=== PATIENT | female | born 1930 | race Caucasian/White ===

== ENCOUNTER 2018-03-04 01:55 | Inpatient (IN) ==
[2018-03-04] MEDS ORDERED: ONDANSETRON HCL/PF 2 MG/ML VIAL IV ONE ×3 (02:20→14:31)
--- NOTE | 2018-03-04 02:23 | ERNOTE ---
Abdominal HPI - General Chief Complaint: Abdominal Pain Time Seen by Provider: 03/04/18 02:16 Source: patient Exam Limitations: no limitations - Immun/Allergies/Home Medications Immunizatons: IMMUNIZATION HX Immunizations Up to Date Yes History of Influenza Vaccine Yes Hx Pneumococcal Vaccination Yes Allergies/Adverse Reactions: Allergies No Known Allergies Allergy (Verified 03/04/18 02:10) Home Medications: HOME MEDICATIONS Aspirin [Aspirin Chewable] 81 mg PO DAILY 05/17/14 [Last Taken 01/17/18 81mg] Benazepril HCl [Lotensin] 20 mg PO DAILY 05/17/14 [Last Taken 01/17/18 20] amLODIPine BESYLATE [Norvasc] 5 mg PO DAILY 05/17/14 [Last Taken 01/17/18 5mg] Levothyroxine Sodium [Synthroid] 125 mcg PO DAILY@0700 12/09/15 [Last Taken 12/30] loperamide 2 mg capsule 2 mg PO DAILY cap 01/30/18 [Last Taken Unknown] ferrous sulfate 325 mg (65 mg iron) tablet 325 mg PO BID #180 tab 03/03/18 [ Last Taken Unknown] - History of Present Illness Narrative: Pt states she was in her usual state of health when she went to bed last night around 22:00. She then woke up approx 1 hour SLURRY MAN with abdominal pain and n/v. She called her daughter who brought her to the ED. She was admitted to this facility last month with SBO. Timing: getting worse Quality: moderate Review of Systems - Review of Systems Constitutional: Absent: recent illness, fever EYE: Absent: vision changes Respiratory: Absent: shortness of breath Cardiology: Absent: chest pain Gastrointestinal/Abdominal: Present: See HPI, nausea, vomiting, diarrhea - which she uses imodium for.. Absent: constipation Genitourinary: Absent: frequency, pain, dysuria Musculoskeletal: Absent: back pain Medical History (Last Reviewed 03/04/18 @ 02:10 by Mario Villasenor RN) Osteoarthritis (Chronic) Onset Date: ~12/10/12 Diverticulosis of colon (Chronic) DVT (deep venous thrombosis) (Chronic) Onset Date: ~12/2005 Hypertension (Chronic) Anemia (Chronic) Diarrhea (Resolved) Cough (Resolved) Hypothyroidism (Chronic) Peritonitis (acute) generalized (Resolved) Radiation proctitis Onset Date: ~07/18/16 Wears dentures Wears glasses Dehydration Rectal cancer Onset Date: ~09/25/05 Rotator cuff tear arthropathy of right shoulder Surgical History: Surgical History (Last Reviewed 03/04/18 @ 02:10 by Mario Villasenor RN) H/O thyroidectomy (Resolved) Onset Date: ~1960 H/O: hysterectomy (Resolved) Basal cell carcinoma Onset Date: ~01/31/18 H/O arthroscopic knee surgery H/O flexible sigmoidoscopy Onset Date: ~07/2008 History of bilateral salpingo-oophorectomy History of bowel resection History of esophagogastroduodenoscopy (EGD) History of rectal surgery History of tonsillectomy and adenoidectomy Hx of colonoscopy S/P bilateral cataract extraction SBO (small bowel obstruction) Family History: Family History (Last Reviewed 03/04/18 @ 02:10 by Mario Villasenor RN) Brother Myocardial infarction Father Cerebral hemorrhage Mother Alzheimers disease Sister Myocardial infarction Sister Hypertension Son Colon polyps Social History: Preferred Language Mongolian Smoking Status Never smoker Have you smoked in the past 12 No months Do you dip or chew tobacco No Abuse History No History of abuse Psych History No pertinent hx Alcohol Use none Drug Use none Physical Exam - Physical Exam General Appearance: Present: wd/wn, alert, no apparent distress Head Exam: Present: normal inspection, no evidence of injury Neck: Present: normal inspection, nontender, supple Respiratory: Present: no respiratory distress, normal breath sounds, no accessory muscle use, lungs clear Cardiovascular/Chest: Present: regular rate, rhythm, no murmur Gastrointestinal/Abdominal: Present: tenderness - diffuse, abnormal bowel sounds - hypoactive, distended - mildly and mildly firm. Absent: guarding, rebound Back Exam: Present: normal inspection, normal range of motion, no CVA tenderness Extremity Exam: Present: normal inspection, normal range of motion, no edema Neurological Exam: Present: alert, oriented, normal mood/affect Skin Exam: Present: normal color, warm/dry Lymphatic Exam: Present: no adenopathy ED Progress - Results and Orders Patient's Lab Results:: I have reviewed the patient's lab results. Results and Orders: Laboratory Tests 03/04/18 03/04/18 03/04/18 02:45 02:45 02:45 WBC 11.8 H Hgb 13.9 Hct 43.2 Neutrophils % 81.7 H Sodium 138 Potassium 4.3 Chloride 101 BUN 22 D Creatinine 0.85 Random Glucose 169 H Calcium 9.8 AST 31 ALT 19 Amylase 50 Lipase 212 Urine Color Yellow Urine Appearance Clear Urine pH 6.0 Ur Specific [place] >=1.030 Urine Protein Negative Urine Glucose (UA) Negative Urine Ketones Negative Urine Blood 10 H Urine Nitrate Negative Urine Bilirubin Negative Urine Urobilinogen Normal Ur Leukocyte Esterase Negative Urine RBC Trace Urine WBC 0-5 Ur Epithelial Cells 0-5 Urine Bacteria 1+ H Urine Mucus Moderate - 2+ H Urine Culture Comments No culture indicated - Vital Signs Patient's Vital Signs:: I have reviewed the patient's vital signs. Vital Signs: Vital Signs 03/04/18 02:01 Temperature 37.5 C Pulse Rate 94 Respiratory Rate 16 Blood Pressure 163/94 H O2 Sat by Pulse Oximetry 98 - X-Ray X-Ray #1 X-Ray: abdomen Interpretation: Interp. by me X-ray Comments: mod stool, non-specific bowel / gas pattern. No evidence of obstruction. - CT/Ultrasound CT/Ultrasound Narrative: CT abd / pelvis with contrast: SBO distal small bowel without evidence for perforation. - Progress/Reassessment Chief Complaint: Abdominal Pain Progress:: Improved Progress Note-Subjective: 03/04/18 08:[address] Gudino and she agrees with admit. She requests that I consult gen surgery. I spoke with Dr. Valenzuela and he agrees to consult on the patient. He has seen the patient previously. Departure Clinical Impression: SBO (small bowel obstruction) - Departure Disposition: Still a patient Condition: Stable
[2018-03-04 02:52] LABS: Hematocrit 43.2 % (37.0-47.0); Hemoglobin 13.9 gm/dL (12.5-16.0); Mean Cell Volume 97.5 fl (78-100); Mean Corpuscular Hemoglobin 31.4 pg (27-31); Mean Corpuscular Hgb Conc 32.2 g/dl (32-36); Neutrophil # 9.6 K/mm3 (1.3-6.0); Neutrophil % 81.7 % (42-75.0); Platelet Count 273 K/mm3 (150-450); Red Blood Count 4.43 M/mm3 (4.2-5.4); Red Cell Distribution Width 13.3 % (11.5-14.0); White Blood Count 11.8 K/mm3 (4.0-10.5)
[2018-03-04 02:53] LABS: Urine Bilirubin Negative (NEGATIVE); Urine Ketone Negative (NEGATIVE); Urine Nitrite Negative (NEGATIVE); Urine Protein Negative (NEGATIVE); Urine Specific Gravity >=1.030 SP.GR. (1.005-1.010); Urine Urobilinogen Normal (NORMAL)
[2018-03-04] MEDS ORDERED: ONDANSETRON HCL/PF 2 MG/ML VIAL ONE ×2 (02:56→05:30)
[2018-03-04 03:09] LABS: Albumin * 4.4 gm/dl (3.4-5.0); Anion Gap 16.3 mmol/L (6.8-13.8); BUN/Creatinine Ratio 25.9 (9.0-21.6); Bilirubin, Total 0.4 mg/dL (0.0-1.1); Ca. Corrected For Albumin 9.2 mg/dL (8.4-10.2); Calcium * 9.8 mg/dL (7.9-10.9); Potassium 4.3 mmol/L (3.4-4.6); Total Protein 7.7 gm/dL (6.2-8.2)
[2018-03-04 03:11] LABS: Urine Appearance Clear (CLEAR); Urine Blood 10 /ul (NEGATIVE); Urine Color Yellow
[2018-03-04 03:12] LABS: Urine Bacteria 1+; Urine Mucus Moderate - 2+; Urine RBC TRACE /hpf (0-5); Urine WBC 0-5 /hpf (0-5)
[2018-03-04] MEDS ORDERED: MORPHINE SULFATE 2 MG/ML DISP.SYRIN IV ONE ×4 (03:39→19:21)
[2018-03-04] MEDS ORDERED: DIATRIZOATE MEGLUMINE, SODIUM 30 ML BTL PO ONE (03:40)
[2018-03-04] MEDS ORDERED: MORPHINE SULFATE 2 MG/ML DISP.SYRIN ONE ×3 (03:42→07:45)
[2018-03-04] MEDS ORDERED: DIATRIZOATE MEGLUMINE, SODIUM 30 ML BTL ONE (03:42)
[2018-03-04] MEDS ORDERED: ONDANSETRON HCL/PF 2 MG/ML VIAL IV PRN ×2 (15:22→19:43)
[2018-03-04] MEDS ORDERED: ACETAMINOPHEN 325 MG TABLET PO PRN (15:22)
[2018-03-04] MEDS ORDERED: traMADol HCL 50 MG TABLET PO PRN (16:22)
[2018-03-04] MEDS ORDERED: MORPHINE SULFATE 2 MG/ML DISP.SYRIN IV PRN ×2 (16:25→19:21)
--- NOTE | 2018-03-04 17:59 | CONS ---
[facility] - General Date of Service: 03/04/18 Source: patient, family, RN/MD, RN notes reviewed, old records Exam Limitations: no limitations - History of Present Illness Initial Comments: The patient is an 87-year-old female (known to me) who presented to the emergency room last night with a short history of abdominal pain vomiting. She apparently had some diarrhea yesterday, and then last night developed infraumbilical pain and presented to the emergency room. Her initial x-ray showed a nonspecific bowel gas pattern with air and stool in the colon. Subsequent CT scan of the abdomen and pelvis showed fluid-filled proximal small bowel with a nonspecific transition to smaller caliber intestine. This was felt to represent partial small bowel obstruction and the patient was admitted. Her history is remarkable for a rectal carcinoma found on her first screening colonoscopy in 2005. She was treated with external beam radiation therapy at the [facility]. 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 On subsequent endoscopy she was found to have a complete clinical response and had transanal resection of the original tumor area with a pathologic finding of no residual disease. She underwent subsequent chemotherapy through the [facility]. On yearly follow-up colonoscopy in 2006 she was found to have an area suspicious for recurrent tumor which was biopsied. 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. That pathology report is not available. She had a subsequent colonoscopy in 2008 here which revealed complete healing with no mention of radiation proctitis. An additional surveillance colon exam in 2013 was again normal with the exception of diverticulosis. She was admitted here in May 2016 with obstructive symptoms which were managed nonoperatively. She was admitted here again in January for obstructive symptoms and was managed with a nasogastric tube. She responded promptly. She reports chronic problems with constipation and diarrhea. She has to watch her diet. She does take occasional Imodium when her stools are loose. Since being admitted to the hospital she states she feels much better and has passed some gas. Allergies/Adverse Reactions: Allergies No Known Allergies Allergy (Verified 03/04/18 09:12) Home Medications: Home Medications Medication Instructions Recorded Last Taken Aspirin [Aspirin Chewable] 81 mg PO DAILY 05/17/14 01/17/18 81mg Benazepril HCl [Lotensin] 20 mg PO DAILY 05/17/14 01/17/18 20 amLODIPine BESYLATE [Norvasc] 5 mg PO DAILY 05/17/14 01/17/18 5mg Levothyroxine Sodium [Synthroid] 150 mcg PO DAILY@0700 12/09/15 01/17/18 loperamide 2 mg capsule 2 mg PO PRN PRN cap 01/30/18 Unknown ferrous sulfate 325 mg (65 mg 325 mg PO BID #180 tab 03/03/18 Unknown iron) tablet Procedures CATARAC PHACOEMULS/ASPIR (08/03/09) Closed [endoscopic] biopsy of rectum (01/21/07) Colonoscopy (05/28/14) INSERT LENS AT CATAR EXT (08/03/09) Medications - Medications Current Medications: Current Medications Acetaminophen (Tylenol) 650 mg PO Q4H PRN PRN Reason: Mild pain (pain scale 1-3) Stop: 04/03/18 15:23 Last Admin: 03/04/18 15:32 Dose: 650 mg Morphine Sulfate (Morphine Sulfate) 1 mg IV Q2H PRN PRN Reason: Severe Pain (pain scale 7-10) Stop: 04/03/18 16:26 Last Admin: 03/04/18 16:54 Dose: 1 mg Review of Systems - Review of Systems Generalized/Overall Review: Absent: Chills, Fever EENTM: Present: No Symptoms Reported Respiratory: Present: No Symptoms Reported Cardiac: Present: No Symptoms Reported Abdominal: Present: Other - Currently her abdomen does not hurt but is a little "tender" Genitourinary: Present: No Symptoms Reported Musculoskeletal: Present: No Symptoms Reported Skin: Present: No Symptoms Reported Physical Examination - Exam Vital Signs: Vital Signs - Last Taken Temp 37.2 C 03/04/18 14:24 Pulse 77 03/04/18 14:24 Resp 18 03/04/18 14:24 BP 169/69 H 03/04/18 14:24 Pulse Ox 97 03/04/18 14:24 O2 Oxygen Delivery Method Room Air Constitutional: Present: Alert, Oriented x3, Cooperative, Thin and frail ENT Exam: Present: normal ENT inspection Neck: Present: normal inspection Respiratory: Present: no respiratory distress Cardiovascular/Chest: Present: regular rate, rhythm Abdomen: Present: other - Her abdomen is soft, however very tympanitic. Bowel sounds are present. She reports tenderness over the lower abdomen but does not guard and there is no rebound /Rectal: Present: Exam deferred Extremity: Present: normal range of motion Skin Exam: Present: pallor Neurologic: Present: solution strategist II-XII nml as tested, no motor/sensory deficits Appearance: Present: appropriate insight Eye contact: Present: cooperative, good eye contact, normal speech Thoughts: Present: normal thought pattern - Results and Findings: Lab/Microbiology results last 24 hrs: Abnormal/Pending Laboratory Last 24 HRS 03/04/18 03/04/18 03/04/18 02:45 02:45 02:45 WBC 11.8 H MCH 31.4 H Immature Gran % (Auto) 0.80 H Immature Gran # (Auto) 0.10 H Neutrophils % 81.7 H Lymphocytes % 7.4 L Neutrophils # 9.6 H Lymphocytes # 0.88 L Monocytes # 1.1 H Anion Gap 16.3 H BUN/Creatinine Ratio 25.9 H Random Glucose 169 H Urine Blood 10 H Urine Bacteria 1+ H Urine Mucus Moderate - 2+ H - Assessments/Findings (1) SBO (small bowel obstruction) Diagnosis(s): Whether this truly represents a partial small bowel obstruction, radiation enteritis, or is a chronic problem with colonic dysfunction is unclear. The x- rays and CT scan do not suggest a high grade obstruction. She does not have physical findings suggestive of an acute intra-abdominal process which would warrant operative intervention. Her diet could be advanced as tolerated. Would consider institution of a regular program for her bowels with the use of Benefiber or Metamucil. She should avoid Imodium. Will discuss the case with Dr. Gudino Problem: Acute
[2018-03-04] MEDS: FERROUS SULFATE 325 MG TABLET PO SCH (20:51)
[2018-03-04] MEDS ORDERED: MINERAL OIL 1 ENEMA BTL RC ONE (22:54)
[2018-03-05] MEDS: ASPIRIN 81 MG TAB.CHEW PO SCH (08:00)
[2018-03-05] MEDS: FERROUS SULFATE 325 MG TABLET PO SCH ×2 (08:00→21:29)
[2018-03-05] MEDS: amLODIPine BESYLATE 5 MG TABLET PO SCH (08:00)
[2018-03-05] MEDS: LEVOTHYROXINE SODIUM 150 MCG TABLET PO SCH (08:00)
[2018-03-05] MEDS: ENALAPRIL MALEATE 20 MG TABLET PO SCH (08:01)
[2018-03-05] MEDS: SENNOSIDES/DOCUSATE SODIUM 1 TAB TABLET PO SCH ×2 (12:03→16:05)
[2018-03-05] MEDS: POLYETHYLENE GLYCOL 3350 119 GM BTL PO SCH (12:03)
[2018-03-05] MEDS ORDERED: ENOXAPARIN SODIUM 40 MG/0.4 ML SYRG SC SCH (13:15)
[2018-03-05] MEDS ORDERED: SENNOSIDES/DOCUSATE SODIUM 1 TAB TABLET PO SCH (21:00)
[2018-03-06] MEDS: LEVOTHYROXINE SODIUM 150 MCG TABLET PO SCH (07:34)
[2018-03-06] MEDS: ENALAPRIL MALEATE 20 MG TABLET PO SCH (08:15)
[2018-03-06] MEDS: FERROUS SULFATE 325 MG TABLET PO SCH (08:15)
[2018-03-06] MEDS: ASPIRIN 81 MG TAB.CHEW PO SCH (08:15)
[2018-03-06] MEDS: amLODIPine BESYLATE 5 MG TABLET PO SCH (08:16)
[2018-03-06] MEDS: SENNOSIDES/DOCUSATE SODIUM 1 TAB TABLET PO SCH (08:16)
[2018-03-06] MEDS: POLYETHYLENE GLYCOL 3350 119 GM BTL PO SCH (08:16)
--- NOTE | 2018-03-06 10:04 | HP ---
Chief Complaint - Chief Complaint Date of Service: 03/04/18 Time of Service: 07:30 Chief Complaint: Nausea and vomiting, history of bowel obstruction History of Present Illness: The patient presented to the ED with complaints of sudden onset of nausea and vomiting. She states she felt fine yesterday but around 0100 this AM, she was awoken from sleep secondary to nausea and vomiting. She denies any blood in the her vomit. She states she is feeling better since being admitted but stills has intermittent nausea. She denies any significant abdominal pain other than some cramping. She states she has been constipated and has not had a BM in a few days. Medical History (Last Reviewed 03/12/18 @ 15:24 by Yue Hinds RN) Osteoarthritis (Chronic) Onset Date: ~12/10/12 Diverticulosis of colon (Chronic) DVT (deep venous thrombosis) (Chronic) Onset Date: ~12/2005 Hypertension (Chronic) Anemia (Chronic) Diarrhea (Resolved) Cough (Resolved) Hypothyroidism (Chronic) Peritonitis (acute) generalized (Resolved) Radiation proctitis Onset Date: ~07/18/16 Wears dentures Wears glasses Dehydration Rectal cancer Onset Date: ~09/25/05 Rotator cuff tear arthropathy of right shoulder Surgical History: Surgical History (Last Reviewed 03/12/18 @ 15:24 by Yue Hinds RN) H/O thyroidectomy (Resolved) Onset Date: ~1960 H/O: hysterectomy (Resolved) Basal cell carcinoma Onset Date: ~01/31/18 H/O arthroscopic knee surgery H/O flexible sigmoidoscopy Onset Date: ~07/2008 History of bilateral salpingo-oophorectomy History of esophagogastroduodenoscopy (EGD) History of rectal surgery History of tonsillectomy and adenoidectomy Hx of colonoscopy S/P bilateral cataract extraction SBO (small bowel obstruction) Family History: Family History (Last Reviewed 03/12/18 @ 15:24 by Yue Hinds RN) Brother Myocardial infarction Father Cerebral hemorrhage Mother Alzheimers disease Sister Myocardial infarction Sister Hypertension Son Colon polyps Social History: Patient Lives/Resources Home Utilized Preferred Language Greek Do you have any gnosticism or No cultural preference? Smoking Status Never smoker Have you smoked in the past 12 No months Do you dip or chew tobacco No Abuse History No History of abuse Psych History No pertinent hx Alcohol Use none Drug Use none Review Of Systems (GEN) - Review of Systems Generalized/Overall Review: Present: Weakness, Fatigue Abdominal: Present: Nausea, Vomiting, Constipation. Absent: Hematemesis, Melena , Bright blood from rectum Genitourinary: Absent: Burning, Urgency, Frequency, Hesitancy Misc: All systems neg except as marked Immunizations: IMMUNIZATION HX Immunizations Up to Date Yes History of Influenza Vaccine Yes Hx Pneumococcal Vaccination Yes Allergies/Adverse Reactions: Allergies Allergy/AdvReac Type Severity Reaction Status Date / Time No Known Allergies Allergy Verified 03/12/18 15:23 Home Medications: HOME MEDICATIONS Aspirin [Aspirin Chewable] 81 mg PO DAILY 05/17/14 [Last Taken 01/17/18 81mg] Benazepril HCl [Lotensin] 20 mg PO DAILY 05/17/14 [Last Taken 01/17/18 20] amLODIPine BESYLATE [Norvasc] 5 mg PO DAILY 05/17/14 [Last Taken 01/17/18 5mg] ferrous sulfate 325 mg (65 mg iron) tablet 325 mg PO BID #180 tab 03/03/18 [ Last Taken Unknown] Levothyroxine Sodium [Synthroid] 150 mcg PO DAILY@0700 tab 03/06/18 [Last Taken Unknown] Methylcellulose (with Sugar) [Citrucel Powder] 1 tbs PO DAILY #2 bottle [Last Taken Unknown] Ondansetron [Zofran Odt] 4 mg PO Q8H PRN #20 tab 03/06/18 [Last Taken Unknown] Exam - Exam Vital Signs: Vital Signs - Last Taken Temp 36.8 C 03/06/18 06:44 Pulse 60 03/06/18 08:16 Resp 18 03/06/18 06:44 BP 124/63 03/06/18 08:16 Pulse Ox 96 03/06/18 06:44 Constitutional: Present: Alert, Oriented x3, Cooperative, No distress, Elderly, Thin and frail ENT Exam: Present: moist mucous membranes Back Exam: Present: no CVA tenderness Respiratory: Present: lungs clear, normal breath sounds, no respiratory distress , no accessory muscle use Cardiovascular/Chest: Present: regular rate, rhythm Abdomen: Present: soft, nondistended, no rebound tenderness, tender - Slight discomfort diffusely with deep palpation, other - active bowel sounds in all 4 quadrants. Absent: guarding, rigidity, CVA tenderness, suprapubic tenderness Extremity: Present: normal inspection Skin Exam: Present: warm/dry Neurologic: Present: no motor/sensory deficits, alert, normal mood/affect, oriented x 3 Appearance: Present: appropriate appearance, appropriate insight Eye contact: Present: cooperative, good eye contact Thoughts: Present: normal thought pattern, no apparent hallucination Diagnostic Studies: Laboratory Results WBC 11.8 K/mm3 (4.0-10.5) H 03/04/18 02:45 RBC 4.43 M/mm3 (4.2-5.4) 03/04/18 02:45 Hgb 13.9 gm/dL (12.5-16.0) 03/04/18 02:45 Hct 43.2 % (37.0-47.0) 03/04/18 02:45 MCV 97.5 fl (78-100) 03/04/18 02:45 MCH 31.4 pg (27-31) H 03/04/18 02:45 MCHC 32.2 g/dl (32-36) 03/04/18 02:45 RDW 13.3 % (11.5-14.0) 03/04/18 02:45 Plt Count 273 K/mm3 (150-450) 03/04/18 02:45 MPV 10.0 fl (8-12.5) 03/04/18 02:45 Immature Gran % (Auto) 0.80 % (0.001-0.429) H 03/04/18 02:45 Immature Gran # (Auto) 0.10 K/mm3 (0.000-0.0310) H 03/04/18 02:45 Neutrophils % 81.7 % (42-75.0) H 03/04/18 02:45 Lymphocytes % 7.4 % (20-51) L 03/04/18 02:45 Monocytes % 8.9 % (0.0-9) 03/04/18 02:45 Eosinophils % 0.9 % (0.0-3.0) 03/04/18 02:45 Basophils % 0.3 % (0.0-1.0) 03/04/18 02:45 Nucleated RBC % 0.0 k/mm3 (0-1) 03/04/18 02:45 Neutrophils # 9.6 K/mm3 (1.3-6.0) H 03/04/18 02:45 Lymphocytes # 0.88 k/mm3 (1.5-3.5) L 03/04/18 02:45 Monocytes # 1.1 k/mm3 (0.0-1.0) H 03/04/18 02:45 Eosinophils # 0.1 k/mm3 (0.0-0.7) 03/04/18 02:45 Absolute Basophils 0.0 k/mm3 (0.0-0.1) 03/04/18 02:45 Sodium 138 mmol/L (132-142) 03/04/18 02:45 Plasma Sodium 139 mmol/L (130-142) 03/04/18 02:45 Potassium 4.3 mmol/L (3.4-4.6) 03/04/18 02:45 Chloride 101 mmol/L (97-106) 03/04/18 02:45 Carbon Dioxide 25.0 mmol/L (24-32.6) 03/04/18 02:45 Anion Gap 16.3 mmol/L (6.8-13.8) H 03/04/18 02:45 BUN 22 mg/dL (3-23) D 03/04/18 02:45 Creatinine 0.85 mg/dL (0.4-1.4) 03/04/18 02:45 Est GFR (Non-Af Amer) 67 mL/min (60-130) D 03/04/18 02:45 BUN/Creatinine Ratio 25.9 (9.0-21.6) H 03/04/18 02:45 Random Glucose 169 mg/dL (70-110) H 03/04/18 02:45 Calcium 9.8 mg/dL (7.9-10.9) 03/04/18 02:45 Calcium Adj for Albumin 9.2 mg/dL (8.4-10.2) 03/04/18 02:45 Total Bilirubin 0.4 mg/dL (0.0-1.1) 03/04/18 02:45 AST 31 U/L (0-48) 03/04/18 02:45 ALT 19 U/L (19-67) 03/04/18 02:45 Alkaline Phosphatase 88 U/L (50-170) 03/04/18 02:45 Total Protein 7.7 gm/dL (6.2-8.2) 03/04/18 02:45 Albumin 4.4 gm/dl (3.4-5.0) 03/04/18 02:45 Amylase 50 U/L (25-115) 03/04/18 02:45 Lipase 212 U/L (73-393) 03/04/18 02:45 Urine Color Yellow 03/04/18 02:45 Urine Appearance Clear (CLEAR) 03/04/18 02:45 Urine pH 6.0 pH (5.0-7.0) 03/04/18 02:45 Ur Specific [place] >=1.030 SP.GR. (1.005-1.010) 03/04/18 02:45 Urine Protein Negative mg/dL (NEGATIVE) 03/04/18 02:45 Urine Glucose (UA) Negative mg/dL (NEGATIVE) 03/04/18 02:45 Urine Ketones Negative mg/dL (NEGATIVE) 03/04/18 02:45 Urine Blood 10 /ul (NEGATIVE) H 03/04/18 02:45 Urine Nitrate Negative (NEGATIVE) 03/04/18 02:45 Urine Bilirubin Negative mg/dl (NEGATIVE) 03/04/18 02:45 Urine Urobilinogen Normal EU/dl (NORMAL) 03/04/18 02:45 Ur Leukocyte Esterase Negative /ul (NEGATIVE) 03/04/18 02:45 Urine RBC Trace /hpf (0-5) 03/04/18 02:45 Urine WBC 0-5 /hpf (0-5) 03/04/18 02:45 Ur Epithelial Cells 0-5 /hpf (0-5) 03/04/18 02:45 Urine Bacteria 1+ (NONE) H 03/04/18 02:45 Urine Mucus Moderate - 2+ (NONE) H 03/04/18 02:45 Urine Culture Comments No culture indicated 03/04/18 02:45 Assessment/Plan - Narrative Narrative: Admit to observation for a partial small bowel obstruction vs. ileus. The patient's nausea is already improved since admission and is adequately controlled at this time. She has active bowel sounds in all quadrants and she is passing gas so I do not see any reason to place an NG at this time. If patient again develops N/V, we will plan to place an NG to LIS but for now we will hold off. Clear liquid diet as tolerated. Patient likely is constipated and has hard stool that needs to come out. Start bowel regimen and hold for loose stools. Continue to monitor clinical course with plans to hopefully discharge home in the next 24 hours. - Assessment/Plan (1) Constipation Assessment: Acute on chronic Problem: Acute (2) Partial small bowel obstruction Problem: Suspected
--- NOTE | 2018-03-06 10:06 | PN ---
Subjective - Date and Time Seen Date: 03/05/18 Time: 08:05 Subjective Narrative: Patient seen and examined at bedside. NG placed overnight secondary to ongoing N /V. Patient has had several BMs. She states she feels much better this AM and wants the NG out of her nose AMMY. Objective - Review of Systems Generalized/Overall Review: Reports: Fatigue Abdominal: Reports: Nausea, Vomiting, Abdominal Pain. Denies: Hematemesis Misc: All systems neg except as marked - Vitals Vitals: Last Vital Signs Temp 36.8 C 03/06/18 06:44 Pulse 60 03/06/18 08:16 Resp 18 03/06/18 06:44 BP 124/63 03/06/18 08:16 Pulse Ox 96 03/06/18 06:44 - Exam Constitutional: Present: Alert, Oriented x3, Cooperative, No distress, Elderly, Thin and frail ENT Exam: Present: moist mucous membranes Respiratory: Present: lungs clear, normal breath sounds, no respiratory distress , no accessory muscle use Cardiovascular/Chest: Present: regular rate, rhythm Abdomen: Present: soft, nondistended, other - active bowel sounds in all quadrants. Absent: rigidity Extremity: Present: normal inspection Skin Exam: Present: warm/dry Neurologic: Present: no motor/sensory deficits, alert, normal mood/affect, oriented x 3 Appearance: Present: appropriate appearance, appropriate insight, neat Eye contact: Present: cooperative, good eye contact, normal speech Thoughts: Present: normal thought pattern, no apparent hallucination Assessment/Plan Plan Narrative: Although abdominal x-ray yesterday evening was essentially unchanged, the patient continued to have nausea and vomiting so an NG tube was placed around 2330 last night and was hooked up to LIS with minimal output. The patient is passing gas and has had several BMs overnight. The patient this AM feels much better so we will clamp the NG and repeat an abdominal x-ray and hopefully remove the NG later today. Once NG is removed, we will start a clear liquid diet as tolerated. Possible discharge tomorrow if patient continues to clinically improve. - Problems/Diagnosis (1) Partial small bowel obstruction Problem: Suspected (2) Nausea and vomiting Problem: Acute (3) Abdominal pain Problem: Acute Qualifiers: Abdominal location: generalized Qualified Code(s): R10.84 - Generalized abdominal pain (4) Constipation Problem: Acute
--- NOTE | 2018-03-06 10:20 | DS ---
(1) Partial small bowel obstruction Problem: Resolved (2) Abdominal pain Problem: Resolved Qualifiers: Abdominal location: generalized Qualified Code(s): R10.84 - Generalized abdominal pain (3) Constipation Diagnosis(s): Acute on Chronic Problem: Acute (4) Nausea and vomiting Problem: Resolved Description of Stay: ADMISSION DATE: 03/04/2018 DISCHARGE DATE: 03/06/2018 ADMISSION HPI: The patient presented to the ED with complaints of sudden onset of nausea and vomiting. She states she felt fine yesterday but around 0100 this AM, she was awoken from sleep secondary to nausea and vomiting. She denies any blood in her vomit. She states she is feeling better since being admitted but stills has intermittent nausea. She denies any significant abdominal pain other than some cramping. She states she has been constipated and has not had a BM in a few days. HOSPITAL COURSE: The patient was admitted to the hospital for a partial small bowel obstruction which was treated conservatively. The patient had improved shortly after admission and she had active bowel sounds so an NG was not initially placed. However, the evening of 03/04/2018, the patient developed increased abdominal pain and nausea and vomiting so an NG was placed to LIS. She had several good sized BMs overnight after the NG was placed and the AM of 03/05/2018, the patient felt much better and the NG was removed. She was started on a clear liquid diet and remained stable throughout the rest of her admission and she was discharged home in stable condition. FOLLOW-UP APPOINTMENTS: -PCP, Dr. Vazquez, within 1-2 weeks NEW OR CHANGED MEDICATIONS: -Citrucel powder daily DISCONTINUED MEDICATIONS: -None RADIOLOGY REPORTS: Flat with upright abdominal x-ray on 03/04/2018 @ 0304: Nonspecific bowel gas pattern. CT of the abdomen and pelvis with IV and oral contrast on 03/04/2018: 1. SLUDGE VERSUS SMALL POLYP WITHIN THE GALLBLADDER; THIS CAN BE FURTHER EVALUATED WITH ULTRASOUND. 2. SMALL HIATAL HERNIA. 3. DILATATION OF JEJUNUM AND PROXIMAL ILEUM, WHICH IS PRIMARILY FLUID-FILLED. THE ETIOLOGY IS NOT CLEARLY DEFINED. THIS WOULD BE CONSISTENT WITH A PARTIAL SMALL BOWEL OBSTRUCTION. 4. TINY AMOUNT OF FREE FLUID WITHIN THE PELVIS Flat with upright abdominal x-ray on 03/04/2018 @ 1932: Grossly unchanged exam. Single view CXR on 03/04/2018 @ 2340: No acute cardiopulmonary process detected. Adequate placement of enteric feeding tube Flat with upright abdominal x-ray on 03/05/2018: Significantly improved bowel gas pattern. There is no definite signs of abnormally dilated small bowel segments in the current examination. Procedures Performed: none Results and Findings: Lab Pending Results 03/04/18 02:45: WBC 11.8 H, RBC 4.43, Hgb 13.9, Hct 43.2, MCV 97.5, MCH 31.4 H, MCHC 32.2, RDW 13.3, Plt Count 273, MPV 10.0, Immature Gran % (Auto) 0.80 H, Immature Gran # (Auto) 0.10 H, Neutrophils % 81.7 H, Lymphocytes % 7.4 L, Monocytes % 8.9, Eosinophils % 0.9, Basophils % 0.3, Nucleated RBC % 0.0, Neutrophils # 9.6 H, Lymphocytes # 0.88 L, Monocytes # 1.1 H, Eosinophils # 0.1 , Absolute Basophils 0.0 03/04/18 02:45: Sodium 138, Plasma Sodium 139, Potassium 4.3, Chloride 101, Carbon Dioxide 25.0, Anion Gap 16.3 H, BUN 22 D, Creatinine 0.85, Est GFR (Non- Af Amer) 67 D, BUN/Creatinine Ratio 25.9 H, Random Glucose 169 H, Calcium 9.8, Calcium Adj for Albumin 9.2, Total Bilirubin 0.4, AST 31, ALT 19, Alkaline Phosphatase 88, Total Protein 7.7, Albumin 4.4, Amylase 50, Lipase 212 03/04/18 02:45: Urine Color Yellow, Urine Appearance Clear, Urine pH 6.0, Ur Specific [place] >=1.030, Urine Protein Negative, Urine Glucose (UA) Negative, Urine Ketones Negative, Urine Blood 10 H, Urine Nitrate Negative, Urine Bilirubin Negative, Urine Urobilinogen Normal, Ur Leukocyte Esterase Negative, Urine RBC Trace, Urine WBC 0-5, Ur Epithelial Cells 0-5, Urine Bacteria 1+ H, Urine Mucus Moderate - 2+ H, Urine Culture Comments No culture indicated Discharge Location: Home Disposition: Home self-care Condition: Stable Discharge Activity: Activity as tolerated Discharge Diet: General/regular food - as tolerated Referrals: Vincent Vazquez MD [Primary Care Provider] - Problem Oriented Discharge Instructions to Patient/Family: Small Bowel Series, Care After, [id number], Small Bowel Obstruction, [id number] Additional Patient Instructions (free text): -Please make TCM appointment unless group home discharge. Thank you! Charity @ [phone]. -Follow-up with PCP, Dr. Vazquez, within 2 weeks patient will Follow up with Dr. Marques in [facility] office on 03/10/18 @ 3:00 pm. Prescriptions (Any new or edited meds): Methylcellulose (with Sugar) [Citrucel Powder] 1 tbs PO DAILY #2 bottle Complete Home Medications List: Complete Home Medication List: Aspirin [Aspirin Chewable] 81 mg PO DAILY 05/17/14 Benazepril HCl [Lotensin] 20 mg PO DAILY 05/17/14 amLODIPine BESYLATE [Norvasc] 5 mg PO DAILY 05/17/14 ferrous sulfate 325 mg (65 mg iron) tablet 325 mg PO BID #180 tab 03/03/18 Levothyroxine Sodium [Synthroid] 150 mcg PO DAILY@0700 tab 03/06/18 Methylcellulose (with Sugar) [Citrucel Powder] 1 tbs PO DAILY #2 bottle Ondansetron [Zofran Odt] 4 mg PO Q8H PRN #20 tab 03/06/18
[2018-03-06 10:39] VITALS: BP 122/50
== END 2018-03-06 11:29 | disposition home or self-care (01) | DRG 390 ==
LOC: ER 01:55 → MS 07:32 → INTOOBSV 07:32 → MS 09:30
PROVIDERS: ADMIT Internal Medicine; ATTEND Internal Medicine
CPT/HCPCS: 36415; 71010; 71045; 74019; 74020; 74177; 80053; 81001; 82150; 83690; 85025; 96374; 96375; 96376; 99284; J2405

== ENCOUNTER 2019-08-17 07:29 | Inpatient (IN) ==
[2019-08-17 08:23] LABS: Hematocrit 38.8 % (37.0-47.0); Hemoglobin 12.2 gm/dL (12.5-16.0); Mean Corpuscular Hemoglobin 31.4 pg (27-31); Mean Corpuscular Hgb Conc 31.4 g/dl (32-36); Mean Platelet Volume 9.3 fl (8-12.5); Neutrophil # 7.5 K/mm3 (1.3-6.0); Neutrophil % 81.7 % (42-75.0); Platelet Count 263 K/mm3 (150-450); Red Blood Count 3.88 M/mm3 (4.2-5.4); Red Cell Distribution Width 13.6 % (11.5-14.0); White Blood Count 9.2 K/mm3 (4.0-10.5)
[2019-08-17 08:29] LABS: Urine Appearance Slightly Cloudy (CLEAR); Urine Bacteria None Seen; Urine Bilirubin Negative (NEGATIVE); Urine Blood Negative /ul (NEGATIVE); Urine Color Yellow; Urine Ketone 5 mg/dL (NEGATIVE); Urine Mucus Few - 1+; Urine Nitrite Negative (NEGATIVE); Urine Protein Negative (NEGATIVE); Urine RBC None Seen /hpf (0-5); Urine Specific Gravity >=1.030 SP.GR. (1.005-1.010); Urine Urobilinogen Normal (NORMAL); Urine pH 5.5 pH (5.0-7.0)
[2019-08-17] MEDS ORDERED: ONDANSETRON HCL/PF 2 MG/ML VIAL IV ONE (08:30)
[2019-08-17] MEDS ORDERED: DIATRIZOATE MEGLUMINE, SODIUM 30 ML BTL PO ONE (08:30)
[2019-08-17] MEDS ORDERED: ACETAMINOPHEN 1,000 MG/100 ML BTL IV ONE (08:30)
--- NOTE | 2019-08-17 08:34 | ERNOTE ---
Abdominal HPI - General Chief Complaint: Abdominal Pain Time Seen by Provider: 08/17/19 07:58 Source: patient Exam Limitations: dementia - Immun/Allergies/Home Medications Immunizatons: IMMUNIZATION HX Immunizations Up to Date Yes History of Influenza Vaccine Yes Hx Pneumococcal Vaccination Yes Allergies/Adverse Reactions: Allergies No Known Allergies Allergy (Verified 08/17/19 12:41) Home Medications: HOME MEDICATIONS Aspirin [Aspirin Chewable] 81 mg PO DAILY 05/17/14 [Last Taken 01/17/18 81 mg] ferrous sulfate 325 mg (65 mg iron) tablet 325 mg PO BID #180 tab 03/03/18 [Last Taken Unknown] Methylcellulose (with Sugar) [Citrucel Powder] 1 tbs PO DAILY #2 bottle 03/06/18 [Last Taken Unknown] ibuprofen 200 mg tablet 200 mg PO TID-QID PRN 08/07/18 [Last Taken Unknown] amlodipine 10 mg tablet 10 mg PO DAILY #90 tab 03/25/19 [Last Taken Unknown] levothyroxine 125 mcg tablet 125 mcg PO DAILY #90 tab 03/25/19 [Last Taken Unknown] benazepril 20 mg tablet 20 mg PO DAILY #90 tab 07/30/19 [Last Taken Unknown] - History of Present Illness Narrative: Patient was feeling well when her daughter had a meal with her at noon, started with sudden abdominal pain and vomiting around 19:00 yesterday, vomited a lot initially, is still nauseated, denies diarrhea and fever. She has a history of bowel obstructions (about three, last in 2018). She was treated for rectal cancer in 2005 with chemo, radiation and local excision, hysterectomy, no other surgeries Date (Duration): 08/16/19 Time (Timing): 19:00 Quality: moderate Activities at Onset: none Modifying Factors - (Improves): Absent: lying down Modifying Factors - (Worsens): Absent: movement Associated Symptoms: Present: nausea, vomiting. Absent: headache, diarrhea- gross blood, fever/chills, shortness of breath Prior Abdominal Problems: Present: similar symptoms Prior Treatment: Absent: recently seen, currently on antibiotics Review of Systems - Review of Systems Constitutional: Absent: recent illness, fever ENT: Absent: nose congestion Respiratory: Absent: shortness of breath Cardiology: Absent: chest pain Gastrointestinal/Abdominal: Present: See HPI Genitourinary: Absent: frequency, dysuria Musculoskeletal: Absent: back pain Neurological: Absent: headache Medical History (Last Reviewed 08/17/19 @ 13:19 by Enid Frederick MD) Osteoarthritis (Chronic) Onset Date: ~12/10/12 localized, primary; shoulder region Diverticulosis of colon (Chronic) DVT (deep venous thrombosis) (Chronic) Onset Date: ~12/2005- Rt leg x 2 Hypertension (Chronic) Anemia (Chronic) Diarrhea (Resolved) Cough (Resolved) Hypothyroidism (Chronic) Depending on her THS level the dose of levothyroxine will be adjusted Peritonitis (acute) generalized (Resolved) Radiation proctitis Onset Date: ~07/18/16 Wears dentures Wears glasses Dehydration Rectal cancer Onset Date: ~09/25/05 Stage II. Received chemo/radiation therapy x 4 weeks Rotator cuff tear arthropathy of right shoulder Surgical History: Surgical History (Last Reviewed 08/17/19 @ 13:18 by Enid Frederick MD) H/O thyroidectomy (Resolved) Onset Date: ~1960 for goiter H/O: hysterectomy (Resolved) Basal cell carcinoma Onset Date: ~01/31/18 removed off bridge of nose- Dr. Thompson H/O arthroscopic knee surgery Right H/O flexible sigmoidoscopy Onset Date: ~07/2008 [facility]-rectal tumor found and removed History of bilateral salpingo-oophorectomy History of esophagogastroduodenoscopy (EGD) History of rectal surgery 01/2006, 07/28/08 - [facility]-rectal cancer excised via anus History of tonsillectomy and adenoidectomy Hx of colonoscopy 09/25/05-Tinguely w/ biopsy; invasive adenocarcinoma (rectal) 01/21/07- w/ biopsy; tubular adenoma w/ high grade dysplasia 04/05/09- Tinguely; scattered sigmoid diverticulosis 05/28/14- normal S/P bilateral cataract extraction 06/07/09, 08/03/09 left, right SBO (small bowel obstruction) Family History: Family History (Last Reviewed 08/17/19 @ 12:41 by Claudia Marrero RN) Brother , Age 81 Myocardial infarction Father , Age 82 Cerebral hemorrhage Mother Alzheimers disease Sister , Age 92 Myocardial infarction Sister Hypertension Son Colon polyps Social History: (Last Reviewed 08/17/19 @ 12:41 by Claudia Marrero RN) Social History: Marital status: / household members: none number of children: 9 current occupational status: retired Highest education level completed: high school graduate Service: No Tobacco: Smoking Status: Never smoker Alcohol: alcohol intake: never Substance Use: substance use type: does not use Dietary Habits: caffeine: Yes Type: coffee Exercise: Physical activity type: none Physical Exam - Physical Exam General Appearance: Present: wd/wn, alert, no apparent distress Respiratory: Present: no respiratory distress, normal breath sounds, no accessory muscle use, lungs clear Cardiovascular/Chest: Present: regular rate, rhythm, no murmur Gastrointestinal/Abdominal: Present: tenderness - mild throughout, abnormal bowel sounds - increased, distended. Absent: guarding, rebound Extremity Exam: Present: no edema Neurological Exam: Present: alert, oriented, normal mood/affect Skin Exam: Present: normal color, warm/dry Progress - Results and Orders Patient's Lab Results:: I have reviewed the patient's lab results. - Vital Signs Patient's Vital Signs:: I have reviewed the patient's vital signs. Vital Signs: Vital Signs 08/17/19 07:41 08/17/19 08:26 Temperature 37 C Pulse Rate 82 79 Respiratory Rate 14 14 Blood Pressure 163/72 H 154/75 H O2 Sat by Pulse Oximetry 97 97 - X-Ray X-Ray #1 X-Ray: abdomen - no acute Interpretation: Reviewed by pr - CT/Ultrasound CT/Ultrasound Narrative: CT abdomen/pelvis: 1. Findings compatible with bowel obstruction of the small bowel. There is diffuse bowel wall thickening of the small bowel indicating probable inflammatory or infectious process is well 2. Lack of opacification and collapse: Limited evaluation of the colon. There is extensive diverticulosis 3. Ascites, mesenteric congestion and edema 4. Distended gallbladder of unknown clinical significance. Cholecystitis not entirely excluded. 5. Additional comments and findings are as above - Progress/Reassessment Chief Complaint: Abdominal Pain Progress Note-Subjective: 08/17/19 09:10 patient more comfortable after IV tylenol, tolerating po contrast 08/17/19 11:25 discussed test results with patient and daughter, recommended admission, patient agreed 08/17/19 11:36 discussed with nilam Farley to admit for small bowel obstruction 08/17/19 11:[address] Parra Departure Clinical Impression: SBO (small bowel obstruction) - Departure Disposition: Still a patient Condition: Stable
[2019-08-17 08:39] LABS: Albumin * 3.7 gm/dl (3.4-5.0); Anion Gap 11.2 mmol/L (6.8-13.8); BUN/Creatinine Ratio 26.7 (9.0-21.6); Bilirubin, Total 0.7 mg/dL (0.0-1.1); Ca. Corrected For Albumin 9.2 mg/dL (8.4-10.2); Calcium * 9.3 mg/dL (7.9-10.9); Carbon Dioxide 28.5 mmol/L (24-32.6); Potassium 3.7 mmol/L (3.4-4.6); Total Protein 6.8 gm/dL (6.2-8.2)
[2019-08-17] MEDS: NORMAL SALINE 1,000 ML IV ONE ×2 (09:43→17:56)
[2019-08-17] MEDS ORDERED: ONDANSETRON HCL/PF 2 MG/ML VIAL IV PRN (12:03)
[2019-08-17] MEDS ORDERED: ACETAMINOPHEN 1,000 MG/100 ML BTL IV PRN (12:05)
--- NOTE | 2019-08-17 13:25 | HP ---
Chief Complaint - Chief Complaint Date of Service: 08/17/19 Time of Service: 12:59 Chief Complaint: Abdominal pain x1 day with nausea and vomiting History of Present Illness: 88-year-old female with past medical history anemia, DVT, hypertension, hypothyroidism, dementia, osteoarthritis, rectal cancer status post chemoradiation with local excision in 2005 presents from home with complaints of of abdominal pain associated with nausea and vomiting that began yesterday. The patient is accompanied by her daughter who states yesterday the patient was not feeling well and she called her daughter.. Her daughter presented to the [facility] home and stated that the patient had 4 episodes of vomiting food particles followed by green liquid. The patient has had no more episodes of vomiting today but continued to have abdominal pain. Last bowel movement was yesterday. She has a history of SBO's and has had about 3 of them in the past. CT scan of the abdomen and pelvis was positive for diffuse bowel wall thickening of the small bowel indicating probable inflammatory or infectious process, findings compatible with bowel obstruction of the small bowel Medical History (Last Reviewed 08/17/19 @ 13:19 by Enid Frederick MD) Osteoarthritis (Chronic) Onset Date: ~12/10/12 localized, primary; shoulder region Diverticulosis of colon (Chronic) DVT (deep venous thrombosis) (Chronic) Onset Date: ~12/2005- Rt leg x 2 Hypertension (Chronic) Anemia (Chronic) Diarrhea (Resolved) Cough (Resolved) Hypothyroidism (Chronic) Depending on her THS level the dose of levothyroxine will be adjusted Peritonitis (acute) generalized (Resolved) Radiation proctitis Onset Date: ~07/18/16 Wears dentures Wears glasses Dehydration Rectal cancer Onset Date: ~09/25/05 Stage II. Received chemo/radiation therapy x 4 weeks Rotator cuff tear arthropathy of right shoulder Surgical History: Surgical History (Last Reviewed 08/17/19 @ 13:18 by Enid Frederick MD) H/O thyroidectomy (Resolved) Onset Date: ~1960 for goiter H/O: hysterectomy (Resolved) Basal cell carcinoma Onset Date: ~01/31/18 removed off bridge of nose- Dr. Thompson H/O arthroscopic knee surgery Right H/O flexible sigmoidoscopy Onset Date: ~07/2008 [facility]-rectal tumor found and removed History of bilateral salpingo-oophorectomy History of esophagogastroduodenoscopy (EGD) History of rectal surgery 01/2006, 07/28/08 - [facility]-rectal cancer excised via anus History of tonsillectomy and adenoidectomy Hx of colonoscopy 09/25/05-Tingu[place] w/ biopsy; invasive adenocarcinoma (rectal) 01/21/07- w/ biopsy; tubular adenoma w/ high grade dysplasia 04/05/09- Tingu[place]; scattered sigmoid diverticulosis 05/28/14- normal S/P bilateral cataract extraction 06/07/09, 08/03/09 left, right SBO (small bowel obstruction) Family History: Family History (Last Reviewed 08/17/19 @ 12:41 by Claudia Marrero RN) Brother , Age 81 Myocardial infarction Father , Age 82 Cerebral hemorrhage Mother Alzheimers disease Sister , Age 92 Myocardial infarction Sister Hypertension Son Colon polyps Social History: (Last Reviewed 08/17/19 @ 12:41 by Claudia Marrero RN) Social History: Marital status: / household members: none number of children: 9 current occupational status: retired Highest education level completed: high school graduate Service: No Tobacco: Smoking Status: Never smoker Alcohol: alcohol intake: never Substance Use: substance use type: does not use Dietary Habits: caffeine: Yes Type: coffee Exercise: Physical activity type: none Review Of Systems (GEN) - Review of Systems Generalized/Overall Review: Absent: Chills, Fever Respiratory: Absent: Shortness of Breath Cardiac: Absent: Chest Pain Abdominal: Present: Nausea, Vomiting, Abdominal Pain Misc: All systems neg except as marked Immunizations: IMMUNIZATION HX Immunizations Up to Date Yes History of Influenza Vaccine Yes Hx Pneumococcal Vaccination Yes Allergies/Adverse Reactions: Allergies Allergy/AdvReac Type Severity Reaction Status Date / Time No Known Allergies Allergy Verified 08/17/19 12:41 Home Medications: HOME MEDICATIONS Aspirin [Aspirin Chewable] 81 mg PO DAILY 05/17/14 [Last Taken 01/17/18 81 mg] ferrous sulfate 325 mg (65 mg iron) tablet 325 mg PO BID #180 tab 03/03/18 [Last Taken Unknown] Methylcellulose (with Sugar) [Citrucel Powder] 1 tbs PO DAILY #2 bottle 03/06/18 [Last Taken Unknown] ibuprofen 200 mg tablet 200 mg PO TID-QID PRN 08/07/18 [Last Taken Unknown] amlodipine 10 mg tablet 10 mg PO DAILY #90 tab 03/25/19 [Last Taken Unknown] levothyroxine 125 mcg tablet 125 mcg PO DAILY #90 tab 03/25/19 [Last Taken Unknown] benazepril 20 mg tablet 20 mg PO DAILY #90 tab 07/30/19 [Last Taken Unknown] Exam - Exam Vital Signs: Vital Signs - Last Taken Temp 37.1 C 08/17/19 12:58 Pulse 64 08/17/19 12:58 Resp 16 08/17/19 12:58 BP 135/53 08/17/19 12:58 Pulse Ox 97 08/17/19 12:58 Constitutional: Present: Alert, Cooperative, Well developed, Well nourished, Elderly, Thin and frail ENT Exam: Present: hearing grossly normal Eye Exam: bilateral eye: normal inspection, PERRL, EOMI Neck: Present: non-tender, supple. Absent: lymphadenopathy (R), lymphadenopathy (L) Back Exam: Present: normal inspection, no CVA tenderness, no vertebral tenderness Respiratory: Present: lungs clear, no respiratory distress, no accessory muscle use, No wheezing. Absent: crackles, rhonchi Cardiovascular/Chest: Present: normal peripheral pulses, regular rate, rhythm, no edema, no murmur Peripheral Pulses: dorsalis-pedis (R): 1+, dorsalis-pedis (L): 1+ Abdomen: Present: Normal bowel sounds, soft, nontender Extremity: Present: no pedal edema Skin Exam: Present: normal color, warm/dry Neurologic: Present: alert, normal mood/affect Appearance: Present: appropriate appearance, appropriate insight Eye contact: Present: cooperative Thoughts: Present: normal thought pattern, normal mood /affect Diagnostic Studies: Abnormal Lab Results 08/17/19 08/17/19 08/17/19 Range/Units 08:15 08:15 08:23 RBC 3.88 L (4.2-5.4) M/mm3 Hgb 12.2 L (12.5-16.0) gm/dL MCH 31.4 H (27-31) pg MCHC 31.4 L (32-36) g/dl Neutrophils % 81.7 H (42-75.0) % Lymphocytes % 7.2 L (20-51) % Monocytes % 10.3 H (0.0-9) % Neutrophils # 7.5 H (1.3-6.0) K/mm3 Lymphocytes # 0.66 L (1.5-3.5) k/mm3 BUN/Creatinine Ratio 26.7 H (9.0-21.6) Random Glucose 133 H (70-110) mg/dL ALT 16 L (19-67) U/L Urine WBC 5-10 H (0-5) /hpf Urine Mucus Few - 1+ H (NONE) Laboratory Results WBC 9.2 K/mm3 (4.0-10.5) 08/17/19 08:15 RBC 3.88 M/mm3 (4.2-5.4) L 08/17/19 08:15 Hgb 12.2 gm/dL (12.5-16.0) L 08/17/19 08:15 Hct 38.8 % (37.0-47.0) 08/17/19 08:15 MCV 100.0 fl (78-100) 08/17/19 08:15 MCH 31.4 pg (27-31) H 08/17/19 08:15 MCHC 31.4 g/dl (32-36) L 08/17/19 08:15 RDW 13.6 % (11.5-14.0) 08/17/19 08:15 Plt Count 263 K/mm3 (150-450) 08/17/19 08:15 MPV 9.3 fl (8-12.5) 08/17/19 08:15 Immature Gran % (Auto) 0.20 % (0.001-0.429) 08/17/19 08:15 Immature Gran # (Auto) 0.02 K/mm3 (0.000-0.0310) 08/17/19 08:15 Neutrophils % 81.7 % (42-75.0) H 08/17/19 08:15 Lymphocytes % 7.2 % (20-51) L 08/17/19 08:15 Monocytes % 10.3 % (0.0-9) H 08/17/19 08:15 Eosinophils % 0.4 % (0.0-3.0) 08/17/19 08:15 Basophils % 0.2 % (0.0-1.0) 08/17/19 08:15 Nucleated RBC % 0.0 k/mm3 (0-1) 08/17/19 08:15 Neutrophils # 7.5 K/mm3 (1.3-6.0) H 08/17/19 08:15 Lymphocytes # 0.66 k/mm3 (1.5-3.5) L 08/17/19 08:15 Monocytes # 1.0 k/mm3 (0.0-1.0) 08/17/19 08:15 Eosinophils # 0.0 k/mm3 (0.0-0.7) 08/17/19 08:15 Absolute Basophils 0.0 k/mm3 (0.0-0.1) 08/17/19 08:15 Sodium 141 mmol/L (132-142) 08/17/19 08:15 Plasma Sodium 142 mmol/L (130-142) 08/17/19 08:15 Potassium 3.7 mmol/L (3.4-4.6) 08/17/19 08:15 Chloride 105 mmol/L (97-106) 08/17/19 08:15 Carbon Dioxide 28.5 mmol/L (24-32.6) 08/17/19 08:15 Anion Gap 11.2 mmol/L (6.8-13.8) 08/17/19 08:15 BUN 20 mg/dL (3-23) D 08/17/19 08:15 Creatinine 0.75 mg/dL (0.4-1.4) 08/17/19 08:15 Est GFR (Non-Af Amer) 77 mL/min (60-130) 08/17/19 08:15 BUN/Creatinine Ratio 26.7 (9.0-21.6) H 08/17/19 08:15 Random Glucose 133 mg/dL (70-110) H 08/17/19 08:15 Calcium 9.3 mg/dL (7.9-10.9) 08/17/19 08:15 Calcium Adj for Albumin 9.2 mg/dL (8.4-10.2) 08/17/19 08:15 Total Bilirubin 0.7 mg/dL (0.0-1.1) 08/17/19 08:15 AST 22 U/L (0-48) 08/17/19 08:15 ALT 16 U/L (19-67) L 08/17/19 08:15 Alkaline Phosphatase 73 U/L (50-170) 08/17/19 08:15 Total Protein 6.8 gm/dL (6.2-8.2) 08/17/19 08:15 Albumin 3.7 gm/dl (3.4-5.0) 08/17/19 08:15 Amylase 37 U/L (25-115) 08/17/19 08:15 Lipase 101 U/L (73-393) 08/17/19 08:15 Urine Color Yellow 08/17/19 08:23 Urine Appearance Slightly cloudy (CLEAR) 08/17/19 08:23 Urine pH 5.5 pH (5.0-7.0) 08/17/19 08:23 Ur Specific [place] >=1.030 SP.GR. (1.005-1.010) 08/17/19 08:23 Urine Protein Negative mg/dL (NEGATIVE) 08/17/19 08:23 Urine Glucose (UA) Negative mg/dL (NEGATIVE) 08/17/19 08:23 Urine Ketones 5 mg/dL (NEGATIVE) 08/17/19 08:23 Urine Blood Negative /ul (NEGATIVE) 08/17/19 08:23 Urine Nitrate Negative (NEGATIVE) 08/17/19 08:23 Urine Bilirubin Negative mg/dl (NEGATIVE) 08/17/19 08:23 Urine Urobilinogen Normal EU/dl (NORMAL) 08/17/19 08:23 Ur Leukocyte Esterase Negative /ul (NEGATIVE) 08/17/19 08:23 Urine RBC None seen /hpf (0-5) 08/17/19 08:23 Urine WBC 5-10 /hpf (0-5) H 08/17/19 08:23 Ur Epithelial Cells 0-5 /hpf (0-5) 08/17/19 08:23 Urine Bacteria None seen (NONE) 08/17/19 08:23 Urine Mucus Few - 1+ (NONE) H 08/17/19 08:23 Urine Culture Comments No culture indicated 08/17/19 08:23 Assessment/Plan - Narrative Narrative: 88-year-old female with past medical history anemia, DVT, hypertension, hypothyroidism, dementia, osteoarthritis, rectal cancer status post chemoradiation with local excision in 2005 presents from home with complaints of of abdominal pain associated with nausea and vomiting that began yesterday. The patient is accompanied by her daughter who states yesterday the patient was not feeling well and she called her daughter.. Her daughter presented to the patient's home and stated that the patient had 4 episodes of vomiting food particles followed by green liquid. The patient has had no more episodes of vomiting today but continued to have abdominal pain. Last bowel movement was yesterday. She has a history of SBO's and has had about 3 of them in the past. CT scan of the abdomen and pelvis was positive for diffuse bowel wall thickening of the small bowel indicating probable inflammatory or infectious process, findings compatible with bowel obstruction of the small bowel. Plan #[address] patient n.p.o. #2 continue with IV fluid hydration until she is able to tolerate oral intake #3 resume home medications when tolerating oral intake #4 DVT prophylaxis with subcu heparin #5 follow-up surgical consult recommendations - Assessment/Plan (1) SBO (small bowel obstruction) Problem: Acute (2) Nausea and vomiting Problem: Resolved Qualifiers: Vomiting Intractability: non-intractable (3) Hypertension Problem: Chronic Qualifiers: Hypertension type: essential hypertension Qualified Code(s): I10 - Essential (primary) hypertension (4) Hypothyroidism Problem: Chronic Qualifiers: Hypothyroidism type: acquired Qualified Code(s): E03.9 - Hypothyroidism, unspecified (5) Osteoarthritis Problem: Chronic
--- NOTE | 2019-08-17 13:35 | CONS ---
[facility] - General Date of Service: 08/17/19 Source: patient Exam Limitations: no limitations - History of Present Illness Initial Comments: Milka is a pleasant 88-year-old female who is admitted for a partial small bowel obstruction. Since she got to her room she has had a large amount of diarrhea. Her abdominal pain has resolved. She initially started having abdominal pain yesterday at noon. She also had emesis. She has a previous history of bowel obstructions. She was treated for rectal cancer in 2005 with chemo, radiation, surgery, and hysterectomy. Timing/Duration: 24 hours Severity: mild Modifying Factors - (Improves): Reports: other - Diarrhea Associated Symptoms: denies symptoms, vomiting Allergies/Adverse Reactions: Allergies No Known Allergies Allergy (Verified 08/17/19 12:41) Home Medications: Home Medications Medication Instructions Recorded Last Taken Aspirin [Aspirin Chewable] 81 mg PO DAILY 05/17/14 01/17/18 81 mg ferrous sulfate 325 mg (65 mg 325 mg PO BID #180 tab 03/03/18 Unknown iron) tablet Methylcellulose (with Sugar) 1 tbs PO DAILY #2 bottle 03/06/18 Unknown [Citrucel Powder] ibuprofen 200 mg tablet 200 mg PO TID-QID PRN 08/07/18 Unknown amlodipine 10 mg tablet 10 mg PO DAILY #90 tab 03/25/19 Unknown levothyroxine 125 mcg tablet 125 mcg PO DAILY #90 tab 03/25/19 Unknown benazepril 20 mg tablet 20 mg PO DAILY #90 tab 07/30/19 Unknown Procedures CATARAC PHACOEMULS/ASPIR (08/03/09) Closed [endoscopic] biopsy of rectum (01/21/07) Colonoscopy (05/28/14) INSERT LENS AT CATAR EXT (08/03/09) Medications - Medications Current Medications: Current Medications Sodium Chloride (Sodium Chloride 0.9%) 1,000 mls @ 200 mls/hr IV .Q5H ONE Stop: 08/17/19 14:05 Last Admin: 08/17/19 09:43 Dose: 200 mls/hr Documented by: Review of Systems - Review of Systems Generalized/Overall Review: Present: Malaise EENTM: Present: No Symptoms Reported Respiratory: Present: No Symptoms Reported Cardiac: Present: No Symptoms Reported Abdominal: Present: Vomiting, Abdominal Pain Genitourinary: Present: No Symptoms Reported Musculoskeletal: Present: No Symptoms Reported Neurological: Present: No Symptoms Reported Skin: Present: No Symptoms Reported Endocrine: Present: No Symptoms Reported Physical Examination - Exam Vital Signs: Vital Signs - Last Taken Temp 37.1 C 08/17/19 12:58 Pulse 64 08/17/19 12:58 Resp 16 08/17/19 12:58 BP 135/53 08/17/19 12:58 Pulse Ox 97 08/17/19 12:58 O2 Oxygen Delivery Method Room Air Constitutional: Present: Alert, Oriented x3, Cooperative ENT Exam: Present: hard of hearing Eye Exam: right eye: normal inspection Neck: Present: supple Breasts: Present: Exam deferred Respiratory: Present: normal breath sounds, no respiratory distress Cardiovascular/Chest: Present: no JVD Abdomen: Present: soft, nontender, nondistended, no rebound tenderness /Rectal: Present: Exam deferred Extremity: Present: normal range of motion Skin Exam: Present: normal color Neurologic: Present: food management aide II-XII nml as tested Appearance: Present: appropriate appearance Eye contact: Present: cooperative, good eye contact, normal speech Thoughts: Present: normal thought pattern - Results and Findings: Lab/Microbiology results last 24 hrs: Abnormal/Pending Laboratory Last 24 HRS 08/17/19 08/17/19 08/17/19 08:23 08:15 08:15 RBC 3.88 L Hgb 12.2 L MCH 31.4 H MCHC 31.4 L Neutrophils % 81.7 H Lymphocytes % 7.2 L Monocytes % 10.3 H Neutrophils # 7.5 H Lymphocytes # 0.66 L BUN/Creatinine Ratio 26.7 H Random Glucose 133 H ALT 16 L Urine WBC 5-10 H Urine Mucus Few - 1+ H - Assessments/Findings (1) SBO (small bowel obstruction) Problem: Acute Plan - Plan Plan: Continue with conservative management. It is a very good sign that she is already had diarrhea. Her abdominal pain has resolved.
[2019-08-17] MEDS: ENOXAPARIN SODIUM 40 MG/0.4 ML SYRG SC SCH (13:54)
[2019-08-18 06:30] LABS: Hematocrit 30.1 % (37.0-47.0); Hemoglobin 9.3 gm/dL (12.5-16.0); Mean Corpuscular Hemoglobin 31.2 pg (27-31); Mean Corpuscular Hgb Conc 30.9 g/dl (32-36); Mean Platelet Volume 9.3 fl (8-12.5); Neutrophil # 2.5 K/mm3 (1.3-6.0); Platelet Count 179 K/mm3 (150-450); Red Blood Count 2.98 M/mm3 (4.2-5.4); Red Cell Distribution Width 13.5 % (11.5-14.0); White Blood Count 3.8 K/mm3 (4.0-10.5)
[2019-08-18 06:50] LABS: Albumin * 2.7 gm/dl (3.4-5.0); Anion Gap 12.1 mmol/L (6.8-13.8); BUN/Creatinine Ratio 16.4 (9.0-21.6); Bilirubin, Total 0.5 mg/dL (0.0-1.1); Ca. Corrected For Albumin 8.6 mg/dL (8.4-10.2); Calcium * 7.9 mg/dL (7.9-10.9); Carbon Dioxide 25.5 mmol/L (24-32.6); Potassium 3.6 mmol/L (3.4-4.6)
--- NOTE | 2019-08-18 09:09 | PN ---
Dictated Progress Note - Date and Time Seen: Date: 08/18/19 Time: 09:08 - Progress Note Narrative: Doing well, having bm, diallo clears, no abd pain. Vital Signs - Last Taken Temp 36.6 C 08/18/19 06:41 Pulse 63 08/18/19 06:41 Resp 16 08/18/19 06:41 BP 142/54 08/18/19 06:41 Pulse Ox 94 08/18/19 06:41 Abnormal/Pending Laboratory Last 24 HRS 08/18/19 08/18/19 06:20 06:20 WBC 3.8 L D RBC 2.98 L Hgb 9.3 L Hct 30.1 L MCV 101.0 H MCH 31.2 H MCHC 30.9 L Lymphocytes % 19.8 L Monocytes % 12.0 H Eosinophils % 3.1 H Lymphocytes # 0.76 L Chloride 108 H ALT 11 L Total Protein 5.0 L Albumin 2.7 L NAD non labored no JVD skin warm dry abd soft, non tender, non distended Imp: resolved SBO Plan: advance diet as tolerated, ok to dc from surgical standpoint if tolerates diet.
--- NOTE | 2019-08-18 13:18 | DS ---
(1) SBO (small bowel obstruction) Problem: Resolved (2) Nausea and vomiting Problem: Resolved Qualifiers: Vomiting Intractability: non-intractable (3) Hypertension Problem: Chronic Qualifiers: Hypertension type: essential hypertension Qualified Code(s): I10 - Essential (primary) hypertension (4) Hypothyroidism Problem: Chronic Qualifiers: Hypothyroidism type: acquired Qualified Code(s): E03.9 - Hypothyroidism, unspecified (5) Osteoarthritis Problem: Chronic Hospital Course: 88-year-old female with past medical history anemia, DVT, hypertension, hypothyroidism, dementia, osteoarthritis, rectal cancer status post chemoradiation with local excision in 2005 presents from home with complaints of of abdominal pain associated with nausea and vomiting that began yesterday. The patient is accompanied by her daughter who states yesterday the patient was not feeling well and she called her daughter.. Her daughter presented to the patient's home and stated that the patient had 4 episodes of vomiting food particles followed by green liquid. The patient has had no more episodes of vomiting today but continued to have abdominal pain. Last bowel movement was yesterday. She has a history of SBO's and has had about 3 of them in the past. CT scan of the abdomen and pelvis was positive for diffuse bowel wall thickening of the small bowel indicating probable inflammatory or infectious process, fin dings compatible with bowel obstruction of the small bowel. Soon after the patient was admitted she had multiple bowel movements. She was advanced to a liquid diet on the day of admission. She never required an NG tube. Today, she tolerated a regular diet and has no more abdominal pain, nausea or vomiting. The patient recovered much quicker than anticipated and is stable to be discharged home today. Procedures Performed: none Results and Findings: Lab Pending Results 08/17/19 08:15: WBC 9.2, RBC 3.88 L, Hgb 12.2 L, Hct 38.8, MCV 100.0, MCH 31.4 H, MCHC 31.4 L, RDW 13.6, Plt Count 263, MPV 9.3, Immature Gran % (Auto) 0.20, Immature Gran # (Auto) 0.02, Neutrophils % 81.7 H, Lymphocytes % 7.2 L, Monocytes % 10.3 H, Eosinophils % 0.4, Basophils % 0.2, Nucleated RBC % 0.0, Neutrophils # 7.5 H, Lymphocytes # 0.66 L, Monocytes # 1.0, Eosinophils # 0.0, Absolute Basophils 0.0 08/17/19 08:15: Sodium 141, Plasma Sodium 142, Potassium 3.7, Chloride 105, Carbon Dioxide 28.5, Anion Gap 11.2, BUN 20 D, Creatinine 0.75, Est GFR (Non-Af Amer) 77, BUN/Creatinine Ratio 26.7 H, Random Glucose 133 H, Calcium 9.3, Calcium Adj for Albumin 9.2, Total Bilirubin 0.7, AST 22, ALT 16 L, Alkaline Phosphatase 73, Total Protein 6.8, Albumin 3.7, Amylase 37, Lipase 101 08/17/19 08:23: Urine Color Yellow, Urine Appearance Slightly cloudy, Urine pH 5.5, Ur Specific [place] >=1.030, Urine Protein Negative, Urine Glucose (UA) Negative, Urine Ketones 5, Urine Blood Negative, Urine Nitrate Negative, Urine Bilirubin Negative, Urine Urobilinogen Normal, Ur Leukocyte Esterase Negative, Urine RBC None seen, Urine WBC 5-10 H, Ur Epithelial Cells 0-5, Urine Bacteria None seen, Urine Mucus Few - 1+ H, Urine Culture Comments No culture indicated 08/18/19 06:20: WBC 3.8 L D, RBC 2.98 L, Hgb 9.3 L, Hct 30.1 L, MCV 101.0 H, MCH 31.2 H, MCHC 30.9 L, RDW 13.5, Plt Count 179, MPV 9.3, Immature Gran % (Auto) 0.30, Immature Gran # (Auto) 0.01, Neutrophils % 64.0, Lymphocytes % 19.8 L, Monocytes % 12.0 H, Eosinophils % 3.1 H, Basophils % 0.8, Nucleated RBC % 0.0, Neutrophils # 2.5, Lymphocytes # 0.76 L, Monocytes # 0.5, Eosinophils # 0.1, Absolute Basophils 0.0 08/18/19 06:20: Sodium 142, Plasma Sodium 142, Potassium 3.6, Chloride 108 H, Carbon Dioxide 25.5, Anion Gap 12.1, BUN 9 D, Creatinine 0.55, Est GFR (Non-Af Amer) 111 D, BUN/Creatinine Ratio 16.4, Random Glucose 76 D, Calcium 7.9, Calcium Adj for Albumin 8.6, Total Bilirubin 0.5, AST 18, ALT 11 L, Alkaline Phosphatase 57, Total Protein 5.0 L, Albumin 2.7 L Discharge Location: Home Disposition: Home self-care Condition: Stable Discharge Activity: Activity as tolerated Discharge Diet: General/regular food Complete Home Medications List: Complete Home Medication List: Aspirin [Aspirin Chewable] 81 mg PO DAILY 05/17/14 ferrous sulfate 325 mg (65 mg iron) tablet 325 mg PO BID #180 tab 03/03/18 Methylcellulose (with Sugar) [Citrucel Powder] 1 tbs PO DAILY #2 bottle 03/06/18 ibuprofen 200 mg tablet 200 mg PO TID-QID PRN 08/07/18 amlodipine 10 mg tablet 10 mg PO DAILY #90 tab 03/25/19 levothyroxine 125 mcg tablet 125 mcg PO DAILY #90 tab 03/25/19 benazepril 20 mg tablet 20 mg PO DAILY #90 tab 07/30/19
[2019-08-18] MEDS: ENOXAPARIN SODIUM 40 MG/0.4 ML SYRG SC SCH (14:32)
[2019-08-18 15:18] VITALS: BP 129/62
== END 2019-08-18 15:00 | disposition home or self-care (01) | DRG 390 ==
LOC: MS 07:29 → ER 07:29 → OBSVTOIN 11:53 → MS 12:32
PROVIDERS: ADMIT Internal Medicine; ATTEND Internal Medicine
CPT/HCPCS: 36415; 74019; 74020; 74177; 80053; 81001; 82150; 83690; 85025; 87086; 96361; 96374; 96375; 99285; J0131; J2405; Q9963; Q9967